=== PATIENT | female | born 1995 | race African-American/Black ===

== ENCOUNTER 2017-08-08 09:54 | Emergency (ER) | payer SELFPAY ==
[~2017-08-08] VITALS: Ht 165.1 cm; Wt 88.8 kg
[~2017-08-08 09:54] MED LIST: NAPROSYN500 MG PO; NO ROUTINE HOME MEDS; PEN-VEE K,VEET500 MG PO; ULTRAM50 MG PO
[2017-08-08 10:17] LABS: HEMATOCRIT 35.8 % (36.0-46.0); HEMOGLOBIN 12.5 G/DL (11.9-15.5); MCH 28.5 PG (29.0-34.0); MCHC 34.9 G/DL (30.0-36.0); MCV 81.5 FL (83-99); PLATELET COUNT 284 K/uL (156-360); RBC DIS.WIDTH-CV 14.5 % (11.8-14.6); RBC DIS.WIDTH-SD 42.4 % (39-53); RED BLOOD COUNT 4.39 M/uL (3.80-5.20); WHITE BLOOD COUNT 8.5 K/uL (4.1-10.2)
[2017-08-08 12:21] LABS: APPEARANCE CLEAR ((CLEAR)); BILIRUBIN NEGATIVE; BLOOD NEGATIVE; COLOR YELLOW ((YELLOW)); GLUCOSE (STRIP) NEGATIVE; KETONES NEGATIVE; LEUKOCYTES SMALL; NITRITE NEGATIVE; PROTEIN (STRIP) NEGATIVE; SPECIFIC GRAVITY 1.016 (1.000-1.030); UROBILINOGEN 0.2 MG/DL (0.2-1.0)
[2017-08-08 12:29] LABS: BACTERIA RARE /HPF; CALCIUM OXALATE CRYSTALS 1+ /HPF; EPITHELIAL CELLS 2+ /HPF; MUCUS TRACE /LPF; RED BLOOD CELLS 0-5 /HPF (0-5); UCUL ADDED? YES; WHITE BLOOD CELLS 30-40 /HPF (0-5)
[2017-08-08 12:48] VITALS: BP 138/99
== END 2017-08-08 12:30 | disposition home or self-care (01) ==
LOC: EME 09:54
DX: O46.91 Antepartum hemorrhage, unspecified, first trimester (principal); O99.331 Smoking (tobacco) complicating pregnancy, first trimester; F17.200 Nicotine dependence, unspecified, uncomplicated; Z3A.01 Less than 8 weeks gestation of pregnancy
CPT/HCPCS: 76801; 81003; 84702; 85027; 87086; 99281; 99284

== ENCOUNTER 2017-08-14 07:24 | Emergency (ER) | payer SELFPAY ==
[~2017-08-14] VITALS: Ht 165.1 cm; Wt 85.7 kg
[2017-08-14 07:59] LABS: HEMATOCRIT 35.8 % (36.0-46.0); HEMOGLOBIN 12.7 G/DL (11.9-15.5); MCH 28.7 PG (29.0-34.0); MCHC 35.5 G/DL (30.0-36.0); PLATELET COUNT 275 K/uL (156-360); RBC DIS.WIDTH-CV 14.5 % (11.8-14.6); RBC DIS.WIDTH-SD 42.4 % (39-53); RED BLOOD COUNT 4.42 M/uL (3.80-5.20); WHITE BLOOD COUNT 12.3 K/uL (4.1-10.2)
[2017-08-14 09:00] LABS: APPEARANCE SL.HAZY ((CLEAR)); BILIRUBIN NEGATIVE; BLOOD NEGATIVE; COLOR YELLOW ((YELLOW)); GLUCOSE (STRIP) NEGATIVE; KETONES 80; LEUKOCYTES NEGATIVE; NITRITE NEGATIVE; PROTEIN (STRIP) 30; SPECIFIC GRAVITY 1.021 (1.000-1.030)
[2017-08-14 09:13] LABS: ALKALINE PHOSPHATASE 37 IU/L (3-129); ALT (GPT) 11 IU/L (3-49); AST (GOT) 12 IU/L (2-34); CHLORIDE 106 MEQ/L (99-109); CREATININE 0.7 MG/DL (0.6-1.3); GFR ESTIMATE (CALCULATED) > 59 mL/min/; GLUCOSE 82 mg/dL (70-99); LIPASE 6 U/L (1.0-51.0); POTASSIUM 3.8 MEQ/L (3.7-5.4); SODIUM 138 MEQ/L (136-147); TOTAL BILIRUBIN 0.5 MG/DL (0.0-1.0); TOTAL PROTEIN 6.3 G/DL (6.4-8.3); UREA NITROGEN (BUN) 5 mg/dL (9-23)
[2017-08-14 09:16] LABS: BACTERIA RARE /HPF; CALCIUM OXALATE CRYSTALS 3+ /HPF; EPITHELIAL CELLS 1+ /HPF; MUCUS 2+ /LPF; UCUL ADDED? NO; WHITE BLOOD CELLS 0-5 /HPF (0-5)
[2017-08-14] MEDS ORDERED: ZOFRAN ODT4 MG PO (09:51)
[2017-08-14 11:17] VITALS: BP 116/73
== END 2017-08-14 11:18 | disposition home or self-care (01) ==
LOC: EME 07:24
PROVIDERS: Physician Assistant
DX: O21.9 Vomiting of pregnancy, unspecified (principal); O99.89 Other specified diseases and conditions complicating pregnancy, childbirth and the puerperium; R19.7 Diarrhea, unspecified; Z3A.01 Less than 8 weeks gestation of pregnancy; Z87.891 Personal history of nicotine dependence
CPT/HCPCS: 80053; 81003; 83690; 84702; 85027; 99281; 99284; J2405; J7030

== ENCOUNTER 2017-09-05 17:34 | Emergency (ER) | payer OTHER ==
[~2017-09-05] VITALS: Ht 165.1 cm; Wt 86.2 kg
[~2017-09-05 17:34] MED LIST changes: +ZOFRAN ODT4 MG PO
[2017-09-05 18:42] LABS: HEMATOCRIT 32.8 % (36.0-46.0); HEMOGLOBIN 11.7 G/DL (11.9-15.5); MCH 28.5 PG (29.0-34.0); MCHC 35.7 G/DL (30.0-36.0); MCV 79.8 FL (83-99); PLATELET COUNT 279 K/uL (156-360); RBC DIS.WIDTH-CV 14.4 % (11.8-14.6); RED BLOOD COUNT 4.11 M/uL (3.80-5.20); WHITE BLOOD COUNT 10.5 K/uL (4.1-10.2)
[2017-09-05 18:52] LABS: ALBUMIN 4.3 g/dL (3.2-4.8); CHLORIDE 103 mEq/L (99-109); POTASSIUM 3.7 mEq/L (3.7-5.4); SODIUM 138 mEq/L (136-147)
[2017-09-05 18:54] LABS: GLUCOSE 83 mg/dL (70-99)
[2017-09-05 18:55] LABS: TOTAL PROTEIN 7.3 g/dL (6.4-8.3)
[2017-09-05 18:56] LABS: TOTAL BILIRUBIN 0.6 mg/dL (0.0-1.0)
[2017-09-05 18:58] LABS: ALKALINE PHOSPHATASE 44 IU/L (3-129); CREATININE 0.7 mg/dL (0.6-1.3); GFR ESTIMATE (CALCULATED) > 59 mL/min/
[2017-09-05 18:59] LABS: UREA NITROGEN (BUN) 5 mg/dL (9-23)
[2017-09-05 19:00] LABS: AST (GOT) 14 IU/L (2-34)
[2017-09-05 19:01] LABS: ALT (GPT) 15 IU/L (3-49)
[2017-09-05 19:02] LABS: LIPASE 7 U/L (1.0-51.0)
[2017-09-05 19:25] LABS: QUANTITATIVE HCG 78132.5 MIU/ML
[2017-09-05 20:30] LABS: APPEARANCE CLEAR ((CLEAR)); BILIRUBIN NEGATIVE; BLOOD NEGATIVE; COLOR YELLOW ((YELLOW)); GLUCOSE (STRIP) NEGATIVE; KETONES 80; LEUKOCYTES NEGATIVE; NITRITE NEGATIVE; PROTEIN (STRIP) NEGATIVE; SPECIFIC GRAVITY 1.017 (1.000-1.030); UCUL ADDED? NO; UROBILINOGEN 0.2 MG/DL (0.2-1.0)
[2017-09-05 20:56] VITALS: BP 140/74
== END 2017-09-05 20:56 | disposition home or self-care (01) ==
LOC: EME 17:34
PROVIDERS: Physician Assistant Medical
DX: O99.611 Diseases of the digestive system complicating pregnancy, first trimester (principal); K92.0 Hematemesis; O99.321 Drug use complicating pregnancy, first trimester; F12.90 Cannabis use, unspecified, uncomplicated; Z3A.09 9 weeks gestation of pregnancy
CPT/HCPCS: 80053; 81003; 83690; 84702; 85027; 99281; 99284; J2405; J7030

== ENCOUNTER 2017-10-11 07:51 | Emergency (ER) | payer OTHER ==
[~2017-10-11] VITALS: Ht 165.1 cm; Wt 84.8 kg
[2017-10-11 08:52] LABS: CHLORIDE 103 mEq/L (99-109); POTASSIUM 3.5 mEq/L (3.7-5.4); SODIUM 138 mEq/L (136-147)
[2017-10-11 08:53] LABS: GLUCOSE 85 mg/dL (70-99)
[2017-10-11 08:57] LABS: CREATININE 0.7 mg/dL (0.6-1.3); GFR ESTIMATE (CALCULATED) > 59 mL/min/
[2017-10-11 08:58] LABS: UREA NITROGEN (BUN) 5 mg/dL (9-23)
[2017-10-11 10:20] LABS: APPEARANCE SL.HAZY ((CLEAR)); BILIRUBIN NEGATIVE; BLOOD NEGATIVE; COLOR YELLOW ((YELLOW)); GLUCOSE (STRIP) NEGATIVE; KETONES 80; LEUKOCYTES NEGATIVE; NITRITE NEGATIVE; PROTEIN (STRIP) 30; SPECIFIC GRAVITY 1.024 (1.000-1.030)
[2017-10-11 10:33] LABS: BACTERIA RARE /HPF; EPITHELIAL CELLS 3+ /HPF; MUCUS 2+ /LPF; RED BLOOD CELLS 0-5 /HPF (0-5); WHITE BLOOD CELLS 0-5 /HPF (0-5)
[2017-10-11] MEDS ORDERED: PHENERGAN25 MG PR (10:53)
[2017-10-11 11:05] VITALS: BP 138/104
== END 2017-10-11 11:07 | disposition home or self-care (01) ==
LOC: EME 07:51
PROVIDERS: Physician Assistant
DX: O21.9 Vomiting of pregnancy, unspecified (principal); Z3A.14 14 weeks gestation of pregnancy; O99.332 Smoking (tobacco) complicating pregnancy, second trimester; F17.200 Nicotine dependence, unspecified, uncomplicated
CPT/HCPCS: 80048; 81003; 99281; 99284; J2405